=== PATIENT | male | born 1960 | race Caucasian/White ===

== ENCOUNTER 2024-12-10 07:19 | Observation (INO) | payer OTHER ==
[2024-12-05 11:14] LABS: BASOPHILS % 0.2 % (0.0-1.0); EOSINOPHILS % 1.6 % (0.0-6.0); LYMPHOCYTES % 24.2 % (18.0-39.1); MONOCYTES % 6.2 % (4.4-11.3); NEUTROPHILS % 67.5 % (38.7-80.0); RED CELL DISTRIBUTION WIDTH 15.7 % (11.7-14.4)
[2024-12-05 11:55] LABS: EST GLOMERULAR FILTRATION RATE 98.0 ML/MIN (>=60)
[~2024-12-10] VITALS: Ht 160 cm; Wt 59.1 kg
[~2024-12-10 07:19] MED LIST: IBUPROFEN800 MG PO
[2024-12-10] MEDS: LACTATED RINGER'S 1,000 ML ONE (07:55)
[2024-12-10] MEDS ORDERED: MIDAZOLAM HCL 2 MG/2 ML VIAL ONE (10:22)
[2024-12-10] MEDS ORDERED: FENTANYL CITRATE/PF 100MCG/2 ML INJ ONE (10:22)
[2024-12-10] MEDS ORDERED: LIDOCAINE HCL 2% LOCAL INJ 5 ML SDV VIAL INJ ONE (10:23)
[2024-12-10] MEDS ORDERED: PROPOFOL IV EMULSION 10 MG/ML 20 ML VIAL ONE ×2 (10:23→11:00)
[2024-12-10] MEDS ORDERED: FAMOTIDINE 20 MG/2 ML VIAL IV ONE (10:24)
[2024-12-10] MEDS ORDERED: SUCCINYLCHOLINE CHLORIDE 20 MG/ML 10ML VIAL ONE (10:36)
[2024-12-10] MEDS ORDERED: DEXAMETHASONE SOD PHOS INJ 4 MG/ML SDV ONE (10:36)
[2024-12-10] MEDS ORDERED: ROCURONIUM BROMIDE 1 ML IV ONE (11:01)
[2024-12-10] MEDS ORDERED: KETAMINE HCL INJ 50 MG/ML 10 ML VIAL ONE (11:05)
[2024-12-10] MEDS ORDERED: GLYCOPYRROLATE INJ 0.2 MG/ML VIAL ONE ×2 (11:05→11:34)
[2024-12-10] MEDS ORDERED: ACETAMINOPHEN 1000 MG/100 ML 100 ML IV ONE (11:06)
[2024-12-10] MEDS ORDERED: NEOSTIGMINE 1 MG/ML 10ML VIAL ONE (11:34)
[2024-12-10] MEDS ORDERED: ONDANSETRON HCL INJ 2MG/ML 2ML 2 MG/ML VIAL ONE (11:37)
[2024-12-10] MEDS ORDERED: SUGAMMADEX SODIUM 200 MG/2 ML VIAL IV ONE (11:40)
[2024-12-10] MEDS ORDERED: ONDANSETRON HCL INJ 2MG/ML 2ML 2 MG/ML VIAL IV PRN (12:00)
[2024-12-10] MEDS ORDERED: HYDROMORPHONE 1MG/1ML INJ IV PRN (12:00)
[2024-12-10] MEDS ORDERED: HYDROCODONE/APAP 7.5MG-325MG 1 EA TAB PO PRN (12:00)
[2024-12-10] MEDS ORDERED: KETOROLAC TROMETHAMINE 30 MG/ML VIAL IV PRN (12:00)
[2024-12-10 13:00] VITALS: BP 137/69; PULSE 51; RESP 16; RESP 18; TEMP 97.4; O2SAT 95
[2024-12-10] MEDS: SODIUM CHLORIDE 0.9% 1000ML 1,000 ML IV SCH (13:50)
[2024-12-10 14:00] VITALS: BP 137/69; PULSE 51; RESP 16; TEMP 97.4; O2SAT 95
[2024-12-10 15:54] LABS: BASOPHILS % 0.2 % (0.0-1.0); EOSINOPHILS % 0.1 % (0.0-6.0); LYMPHOCYTES % 5.6 % (18.0-39.1); MONOCYTES % 0.7 % (4.4-11.3); NEUTROPHILS % 92.9 % (38.7-80.0); RED CELL DISTRIBUTION WIDTH 15.2 % (11.7-14.4)
[2024-12-10 16:32] LABS: EST GLOMERULAR FILTRATION RATE 99.0 ML/MIN (>=60)
[2024-12-10 16:33] VITALS: BP 124/68; PULSE 54; RESP 16; TEMP 98.1; O2SAT 96
[2024-12-10 19:24] VITALS: BP 140/73; PULSE 50; RESP 18; TEMP 98.3; O2SAT 94
[2024-12-10 19:50] VITALS: BP 140/73; PULSE 50; RESP 18; TEMP 98.3; O2SAT 94
[2024-12-10] MEDS ORDERED: SEVOFLURANE INHAL SOLN 250 ML PEN BTL ONE (22:40)
[2024-12-11 00:27] VITALS: BP 127/63; PULSE 50; RESP 18; TEMP 98.2; O2SAT 95
[2024-12-11 00:34] VITALS: BP 127/63; PULSE 50; RESP 18; TEMP 98.2; O2SAT 95
[2024-12-11 00:35] VITALS: BP 127/63; PULSE 50; RESP 18; TEMP 98.2; O2SAT 95
[2024-12-11 03:16] VITALS: BP 140/70; PULSE 48; RESP 18; TEMP 98.1; O2SAT 95
[2024-12-11 08:24] VITALS: BP 145/72; PULSE 50; RESP 19; TEMP 98.1; O2SAT 95
== END 2024-12-11 09:31 | disposition home or self-care (01) ==
LOC: OR 07:19 → PACU V 11:53 → MED/SURG 13:00
PROVIDERS: ADMIT Surgery; ATTEND Surgery
DX: K40.90 Unilateral inguinal hernia, without obstruction or gangrene, not specified as recurrent (principal); G89.29 Other chronic pain; M19.90 Unspecified osteoarthritis, unspecified site; F17.210 Nicotine dependence, cigarettes, uncomplicated; Z01.810 Encounter for preprocedural cardiovascular examination; Z01.812 Encounter for preprocedural laboratory examination; Z01.818 Encounter for other preprocedural examination
CPT/HCPCS: 36415 ×2; 49505; 71046; 80048 ×2; 85025 ×2; 93005; C1781; G0378 ×2; J0131; J0330; J0690; J1100; J1308; J2003; J2250; J2405; J2704; J2710; J3010; J7030 ×2; J7121